=== PATIENT | female | born 1965 | race Caucasian/White ===

== ENCOUNTER 2016-11-17 11:44 | Emergency (ER) | payer MEDICARE, MEDICAID ==
[2016-11-17] MEDS ORDERED: Sodium Chloride 0.9% 1,000 ML IV ONE (12:00)
--- NOTE | 2016-11-17 12:05 | ED Physician Chart ---
Chief Complaint/HPI - Patient Information Date Seen:: 11/17/16 Time Seen:: 11:59 Chief Complaint:: vomiting History of Present Illness:: pt of dr starks..was at his ofc 2 da for n/v and given a rx for zofran but she is vomting it up when she takes it. had a lab draw yest but results unknown. here for n/v since . ate a restraunt meal wed nt felt ok. tasted ok. seems to vomit whenever she ties to eat. v x 1 yest, v x 0 today (nonbloody) diarhea x2 today, x 3 yest. nonbloody. unclear if fever...felt warm 2 nts ago. no thermometer used. has pains in abd diffuse. has back pain onset today rt side > L. more than her usual back pains. no urinary changes. Allergies:: Allergies Allergy/AdvReac Type Severity Reaction Status Date / Time No Known Allergies Allergy Verified 11/17/16 11:51 Vitals:: Vital Signs - 8 hr 11/17/16 11:51 Temp 98.2 F HR 88 RR 16 BP 126/66 O2 Sat % 97 Historian:: Patient Review of Systems - Review of Systems General/Constitutional: Fever (?), No fever, No chills, No weight loss, No weakness, No diaphoresis, No edema, No loss of appetite Skin: No skin lesions, No rash, No bruising Head: No headache, No light-headedness Eyes: No loss of vision, No pain, No diplopia ENT: No earache, No nasal drainage, No sore throat, No tinnitus Neck: No neck pain, No swelling, No thyromegaly, No stiffness, No mass noted Cardio Vascular: No chest pain, No palpitations, No PND, No orthopnea, No edema Pulmonary: No SOB, No cough, No sputum, No wheezing GI: Nausea, Vomiting, Diarrhea, Pain, No melena, No hematochezia, No constipation, No hematemesis G/U: No dysuria, No frequency, No hematuria Musculoskeletal: No bone or joint pain, No back pain, No muscle pain Endocrine: No polyuria, No polydipsia Psychiatric: No prior psych history, No depression, No anxiety, No suicidal ideation Hematopoietic: No bruising, No lymphadenopathy Allergic/Immuno: No urticaria, No angioedema Neurological: No syncope, No focal symptoms, No weakness, No paresthesia, No headache, No seizure, No dizziness, No confusion, No vertigo Past Medical History - Past Medical History Past Medical History: Thyroid disorder, Other (low back pain, diverticulitis hx , fibromyalgia) Social History: Non Smoker (quit x 3months), No Drug Use Surgical History: Cholecystectomy (2 yrs ago), other (cervical ca txd w rad/ chemo 2 yrs ago.) Medication: Reviewed Family Medical History - Family Member Maternal Grandmother Ethnicity: Non- Hx Family Cancer: Yes Mother History Unknown: Yes Ethnicity: Non- Living Status: Still Living Hx Family Cancer: Yes (Mater) Hx Family Coronary Artery Disease: No Hx Family Congestive Heart Failure: No Hx Family Hypertension: No Hx Family Stroke: No Hx Family Diabetes: No Hx Family Seizures: No Hx Family Dementia: No Hx Family AIDS: No Hx Family HIV: No Hx Family COPD: Yes Hx Family Hepatitis: No Hx Family Psychiatric Problems: No Hx Family Tuberculosis: No Labs/Radiology/EKG Results - Lab Results Results: Laboratory Tests 11/17/16 11/17/16 11/17/16 12:12 12:12 12:12 WBC 3.9 L D RBC 4.49 Hgb 14.0 Hct 40.9 MCV 91.0 MCH 31.3 H MCHC Differential 34.4 RDW 12.8 Plt Count 147 L D MPV 7.9 Band Neutrophils % 0 Neutrophils (Manual) 45 Lymphocytes 45 Monocytes 5 Atypical Lymphocytes 5 Platelet Estimate ADEQUATE Sodium 135 L Potassium 3.7 Chloride 107 Carbon Dioxide 25.3 Anion Gap 6.4 L BUN 13 Creatinine 0.9 Est GFR ( Amer) > 60.0 Est GFR (Non-Af Amer) > 60.0 BUN/Creatinine Ratio 14.4 Glucose 109 H Whole Bld Lactic Acid 0.96 Calcium 8.8 Total Bilirubin 1.0 AST 33 ALT 40 Alkaline Phosphatase 158 H Total Protein 7.5 Albumin 3.9 Globulin 3.6 Albumin/Globulin Ratio 1.1 Lipase 29 Urine Source Urine Color Urine Clarity Urine pH Ur Specific [place] Urine Protein Urine Glucose (UA) Urine Ketones Urine Blood Urine Nitrate Urine Bilirubin Urine Urobilinogen Ur Leukocyte Esterase Urine RBC Urine WBC Ur Epithelial Cells Urine Bacteria Urine Mucus Urine Test 11/17/16 11/17/16 13:10 13:10 WBC RBC Hgb Hct MCV MCH MCHC Differential RDW Plt Count MPV Band Neutrophils % Neutrophils (Manual) Lymphocytes Monocytes Atypical Lymphocytes Platelet Estimate Sodium Potassium Chloride Carbon Dioxide Anion Gap BUN Creatinine Est GFR ( Amer) Est GFR (Non-Af Amer) BUN/Creatinine Ratio Glucose Whole Bld Lactic Acid Calcium Total Bilirubin AST ALT Alkaline Phosphatase Total Protein Albumin Globulin Albumin/Globulin Ratio Lipase Urine Source CLEAN C Urine Color YELLOW Urine Clarity CLOUDY H Urine pH 6.0 Ur Specific [place] 1.020 Urine Protein 30 H Urine Glucose (UA) NEGATIVE Urine Ketones TRACE Urine Blood NEGATIVE Urine Nitrate NEGATIVE Urine Bilirubin MODERATE H Urine Urobilinogen 1.0 Ur Leukocyte Esterase LARGE H Urine RBC 0-2 Urine WBC 2-5 Ur Epithelial Cells FEW Urine Bacteria MODERATE Urine Mucus FEW Urine Test NEGATIVE - Radiology Results Results: ct abd/p- no def anomaly. prior gb sx. no renal dz, poss slt infl to pancreas (clinical coorelation advised.nrml lipase...), sx clips in pelvis?! no evidence of appy. ED Septic Shock - . Is Septic Shock (SBP<90, OR Lactate>4 mmol\L) present?: No - <6hrs of presentation: Vital Signs: Vital Signs - 8 hr 11/17/16 11:51 Temp 98.2 F HR 88 RR 16 BP 126/66 O2 Sat % 97 Reassessment (Disposition) - Reassessment Reassessment:: results reviewed w pt at 3;10p. all qs answered. asked pt how she feels and she states pain is still a lrg issue. dw pt options of go home w pain med and see pmd in 1-2 d vs jenni for pain ctrl and further [place]. pt unable to reach any decision has asked me to ruddy santana.. case dw dr santana. he says she does not meet admit criterion. he can see her in ofc tmrw. asks for us to give 1l ns and rocephin 1 g and cipro rx for uti. rx 1 cipro 500 bid x 6d, 2 norco 5s no 10. Reassessment Condition:: Improved - Diagnosis Diagnosis:: 1 abdominal and back pain sof uncertain etiology 2 dehydration 2nd vomiting/dehydration 3 uti - Aftercare/Follow up Instructions Aftercare/Follow-Up Instructions:: Counseled pt regarding lab results/diagnosis & need follow up - Patient Disposition Discharge/Transfer:: Home Condition at Disposition:: Improved ED Discharge Plan - Patient Disposition Accepting Physician: Deny Starks [Primary Care Provider] -
[2016-11-17 12:20] LABS: MEAN CORPUSCULAR HGB CONC 34.4 pg (28.0-36.0); RED CELL DISTRIBUTION WIDTH 12.8 % (11.5-20.0)
[2016-11-17 12:22] LABS: HEMATOCRIT 40.9 % (35.0-45.0); MEAN CORPUSCULAR HEMOGLOBIN 31.3 pg (27.0-31.0); MEAN PLATELET VOLUME 7.9 fl; RED BLOOD COUNT 4.49 Mil/cmm (3.80-5.10)
[2016-11-17 12:27] LABS: PLATELET COUNT 147 Th/cmm (150-400); WHITE BLOOD COUNT 3.9 Th/cmm (4.8-10.8)
[2016-11-17 12:36] LABS: ALB/GLOB RATIO 1.1 (1.0-1.8); ALKALINE PHOSPHATASE 158 U/L (34-104); ANION GAP 6.4 (7.0-16.0); BUN - UREA NITROGEN 13 mg/dL (7-25); BUN/CREATININE RATIO 14.4; CALCIUM SERUM 8.8 mg/dL (8.6-10.3); CARBON DIOXIDE 25.3 mEq/L (21.0-31.0); CHLORIDE 107 mEq/L (98-107); CREATININE - SERUM 0.9 mg/dL (0.6-1.2); GLUCOSE 109 mg/dL (70-105); LIPASE 29 U/L (11-82); POTASSIUM SERUM 3.7 mEq/L (3.5-5.1); SGOT 33 U/L (13-39); SGPT/ALT 40 U/L (7-52); SODIUM SERUM 135 mEq/L (136-145)
[2016-11-17 12:47] LABS: BAND NEUTROPHILE 0 % (0-10); NEUTROPHILS 45 % (40-80); PLATELET ESTIMATE ADEQUATE (NORMAL); TOTAL CELLS COUNTED 100
[2016-11-17 13:21] LABS: URINE BILIRUBIN MODERATE (NEGATIVE); URINE BLOOD NEGATIVE (NEGATIVE); URINE COLOR YELLOW; URINE GLUCOSE (UA) NEGATIVE (NEGATIVE); URINE KETONE TRACE mg/dL (NEGATIVE)
[2016-11-17 13:22] LABS: URINE PROTEIN 30 mg/dL (NEGATIVE)
[2016-11-17 13:26] LABS: URINE BACTERIA MODERATE /hpf (NONE SEEN); URINE EPITHELIAL CELLS FEW /lpf (FEW); URINE RBC 0-2 /hpf (0-5)
--- NOTE | 2016-11-17 14:45 | Diagnostic Imaging Report ---
CT abdomen and pelvis without intravenous contrast Indication: Pain, vomiting for 5 days Comparison: CT abdomen and pelvis on 11/12/2014, Technique: Axial images were obtained from the lung bases to the bilateral proximal femurs without IV contrast. Coronal reconstructions were made. total DLP: 886, CTDI13.2 FINDINGS: Hypoventilatory atelectatic changes of the lung bases are noted. Assessment of solid organs is limited due to lack of IV contrast. No evidence of focal hepatic lesions. The patient is status post cholecystectomy. Borderline prominent spleen is noted. No evidence of focal lesions. Pancreatic gland atrophy is noted. There is minimal haziness of the peripancreatic fat planes. Metallic density seen along the pelvic region possibly related to previous surgery. No evidence of bowel obstruction. No evidence of free fluid. No evidence of acute appendicitis. Degenerative changes of the spine are seen with pars defect at L5/S1 and 1 to 2 mm anterolisthesis. IMPRESSION: No evidence of acute appendicitis No evidence of bowel obstruction Minimal haziness of the peripancreatic fat planes. Changes associated with mild pancreatitis cannot be excluded. Please correlate with clinical findings. Pancreatic gland atrophy is also noted. Surgical clip in the pelvis, please correlate with focal findings. Evidence of prior cholecystectomy. Borderline prominent spleen. Pars defects at L5/S1 with associated 1 to 2 mm anterolisthesis at this level.
[2016-11-17] MEDS ORDERED: Morphine Sulfate 4 mg/mL 1mL Syr ONE (15:47)
== END 2016-11-17 16:40 | disposition home or self-care (01) ==
LOC: ER 11:44
DX: E86.0 Dehydration (principal); N39.0 Urinary tract infection, site not specified; R10.9 Unspecified abdominal pain; E07.9 Disorder of thyroid, unspecified; Z90.49 Acquired absence of other specified parts of digestive tract
CPT/HCPCS: 36415-UA; 80053-TC; 81001-TC; 81025-TC; 83605; 83690-TC; 85007-TC; 85027-TC; 96374; 96375; J0696; J2001; J2405; J7030

== ENCOUNTER 2016-11-22 16:37 | Emergency (ER) | payer MEDICARE, MEDICAID ==
--- NOTE | 2016-11-22 19:10 | ED Physician Chart ---
Chief Complaint/HPI - Patient Information Date Seen:: 11/22/16 Time Seen:: 17:00 Chief Complaint:: ABDOMINAL PAIN History of Present Illness:: THIS IS A 51 YR OLD OBESE FEMALE STATES THAT SHE HAS SEVERE LEFT LOWER ABDOMINAL PAIN. SHE STATES THAT SHE VOMITED FOR 8 DAYS BUT STOPPED TODAY. SHE STATES THAT SHE DOES NOT HAVE PAINFUL URINATION. SHE STATES THAT SHE MUSCLE AND NERVE PAIN. SHE ADMITS TO PERIODS OF CONFUSION. SHE WAS SEEN IN THIS ER SEVERAL DAYS AGO. Allergies:: Allergies Allergy/AdvReac Type Severity Reaction Status Date / Time hydromorphone [From Dilaudid] Allergy Verified 11/22/16 16:39 Vitals:: Vital Signs - 8 hr 11/22/16 16:41 Temp 98.4 F HR 81 RR 15 BP 130/79 O2 Sat % 95 Historian:: Patient Review:: Nurse's Note Reviewed <Buddy Antony - Last Filed: 11/22/16 19:20> - Patient Information Allergies:: Allergies Allergy/AdvReac Type Severity Reaction Status Date / Time hydromorphone [From Dilaudid] Allergy Verified 11/22/16 16:39 Vitals:: Vital Signs - 8 hr 11/22/16 11/22/16 16:41 19:40 Temp 98.4 F 98.6 F HR 81 73 RR 15 18 BP 130/79 119/66 O2 Sat % 95 98 <Roger Crump - Last Filed: 11/22/16 22:13> Review of Systems - Review of Systems General/Constitutional: No fever, No chills, Weight loss, No weakness, No diaphoresis, No edema, Loss of appetite Skin: No skin lesions, No rash, No bruising Head: No headache, No light-headedness Eyes: No loss of vision, No pain, No diplopia ENT: No earache, No nasal drainage, No sore throat, No tinnitus Neck: No neck pain, No swelling, No thyromegaly, No stiffness, No mass noted Cardio Vascular: No chest pain, No palpitations, No PND, No orthopnea, No edema Pulmonary: No SOB, No cough, No sputum, No wheezing GI: Nausea, Vomiting, No diarrhea, Pain, No melena, No hematochezia, No constipation, No hematemesis G/U: No dysuria, No frequency, No hematuria Musculoskeletal: No bone or joint pain, No back pain, No muscle pain Endocrine: No polyuria, No polydipsia Psychiatric: No prior psych history, No depression, No anxiety, No suicidal ideation Hematopoietic: No bruising, No lymphadenopathy Allergic/Immuno: No urticaria, No angioedema Neurological: No syncope, No focal symptoms, No weakness, No paresthesia, No headache, No seizure, No dizziness, No confusion, No vertigo <Buddy Antony Last Filed: 11/22/16 19:20> Past Medical History - Past Medical History Obtainable: Yes Past Medical History: HTN, Dyslipidemia, Arthritis Family History: Other (UNKNOWN) Social History: Non Smoker, No Alcohol, No Drug Use Surgical History: Cholecystectomy, other (CERVICAL CANCER SURGERY) Psychiatricy History: Depression Medication: Reviewed <Buddy Antony Filed: 11/22/16 19:20> Family Medical History - Family Member Maternal Grandmother Ethnicity: Non- Hx Family Cancer: Yes (father, brain ca) Mother History Unknown: Yes Ethnicity: Non- Living Status: Still Living Hx Family Cancer: Yes (Mater) Hx Family Coronary Artery Disease: No Hx Family Congestive Heart Failure: No Hx Family Hypertension: No Hx Family Stroke: No Hx Family Diabetes: No Hx Family Seizures: No Hx Family Dementia: No Hx Family AIDS: No Hx Family HIV: No Hx Family COPD: Yes Hx Family Hepatitis: No Hx Family Psychiatric Problems: No Hx Family Tuberculosis: No <Buddy Antony Filed: 11/22/16 19:20> Physical Exam - Physical Examination General/Constitutional: Awake, Well-developed, well-nourished, Alert, No distress, GCS 15, Non-toxic appearing, Ambulatory Head: Atraumatic Eyes: Lids, conjuctiva normal, PERRL, EOMI Skin: Nl inspection, No rash, No skin lesions, No ecchymosis, Well hydrated, No lymphadenopathy ENMT: External ears, nose nl, Nasal exam nl, Lips, teeth, gums nl Neck: Nontender, Full ROM w/o pain, No JVD, No nuchal rigidity, No bruit, No mass, No stridor Respiratory: Nl effort/Exclusion, Clear to Auscultation, No Wheeze/Rhonchi/Rales Cardio Vascular: RRR, No murmur, gallop, rubs, NL S1 S2 GI: No organomegaly, No hernia, Normal BS's, Nondistended, No mass/bruits, No McBurney tenderness Other GI comments:: LEFT LOWER QUADRANT : No CVA tenderness Extremities: No tenderness or effusion, Full ROM, normal strength in all extremities, No edema, Normal digits & nails Neuro/Psych: Alert/oriented, DTR's symmetric, Normal sensory exam, Normal motor strength, Judgement/insight normal, Mood normal, Normal gait, No focal deficits Misc: normal gait, Normal back, No paraspinal tenderness <ArpanBuddy - Last Filed: 11/22/16 19:20> Labs/Radiology/EKG Results - Lab Results Results: Laboratory Tests 11/22/16 17:50 Urine Test NEGATIVE - EKG Interpretations EKG Time:: 16:50 Rate & Rhythm: RATE =84, SINUS [place]: RIGHT <Buddy Antony - Last Filed: 11/22/16 19:20> - Lab Results Results: Laboratory Tests 11/22/16 11/22/16 11/22/16 17:50 19:10 19:10 WBC RBC Hgb Hct MCV MCH MCHC Differential RDW Plt Count MPV Neutrophils % Lymphocytes % Monocytes % Eosinophils % Basophils % PT 9.8 INR 0.94 PTT (Actin FS) 25.4 L Sodium Potassium Chloride Carbon Dioxide Anion Gap BUN Creatinine Est GFR ( Amer) Est GFR (Non-Af Amer) BUN/Creatinine Ratio Glucose Calcium Total Bilirubin AST ALT Alkaline Phosphatase Troponin I Total Protein Albumin Globulin Albumin/Globulin Ratio Triglycerides 246 H Cholesterol 153 LDL Cholesterol Direct 88 HDL Cholesterol 31 Lipase TSH Urine Test NEGATIVE RPR 11/22/16 11/22/16 11/22/16 19:10 19:10 19:10 WBC 4.7 L D RBC 4.02 Hgb 12.9 Hct 36.4 D MCV 90.6 MCH 32.0 H MCHC Differential 35.4 RDW 13.0 Plt Count 156 MPV 7.9 Neutrophils % 44.8 Lymphocytes % 45.9 Monocytes % 6.2 Eosinophils % 2.9 Basophils % 0.2 PT INR PTT (Actin FS) Sodium 136 Potassium 3.7 Chloride 106 Carbon Dioxide 24.7 Anion Gap 9.0 BUN 14 Creatinine 0.8 Est GFR ( Amer) > 60.0 Est GFR (Non-Af Amer) > 60.0 BUN/Creatinine Ratio 17.5 Glucose 112 H Calcium 8.4 L Total Bilirubin 0.6 AST 21 ALT 27 Alkaline Phosphatase 131 H Troponin I < 0.01 L Total Protein 6.8 Albumin 3.5 L Globulin 3.3 Albumin/Globulin Ratio 1.1 Triglycerides Cholesterol LDL Cholesterol Direct HDL Cholesterol Lipase TSH Urine Test RPR 11/22/16 11/22/16 11/22/16 19:10 19:10 19:10 WBC RBC Hgb Hct MCV MCH MCHC Differential RDW Plt Count MPV Neutrophils % Lymphocytes % Monocytes % Eosinophils % Basophils % PT INR PTT (Actin FS) Sodium Potassium Chloride Carbon Dioxide Anion Gap BUN Creatinine Est GFR ( Amer) Est GFR (Non-Af Amer) BUN/Creatinine Ratio Glucose Calcium Total Bilirubin AST ALT Alkaline Phosphatase Troponin I Total Protein Albumin Globulin Albumin/Globulin Ratio Triglycerides Cholesterol LDL Cholesterol Direct HDL Cholesterol Lipase 45 TSH 10.18 H Urine Test RPR NONREACTIVE <Roger Crump - Last Filed: 11/22/16 22:13> ED Septic Shock - . Is Septic Shock (SBP<90, OR Lactate>4 mmol\L) present?: No - <6hrs of presentation: Vital Signs: Vital Signs - 8 hr 11/22/16 16:41 Temp 98.4 F HR 81 RR 15 BP 130/79 O2 Sat % 95 <Buddy Antony - Last Filed: 11/22/16 19:20> - <6hrs of presentation: Vital Signs: Vital Signs - 8 hr 11/22/16 11/22/16 16:41 19:40 Temp 98.4 F 98.6 F HR 81 73 RR 15 18 BP 130/79 119/66 O2 Sat % 95 98 <Roger Crump - Last Filed: 11/22/16 22:13> Reassessment (Disposition) - Reassessment Reassessment Condition:: Unchanged <Buddy Antony - Last Filed: 11/22/16 19:20> - Reassessment Reassessment:: CT scan shows no acute changes from her previous on 11/17/2016. Lipase unremarkable. Patient has abdominal pain unknown etiology. Follow-up with GI and primary care 1-2 days. Pain is not controlled after receiving Toradol. Discussed return to ER precautions. Patient understands and agrees with the plan. - Diagnosis Diagnosis:: Abdominal pain, unknown etiology - Aftercare/Follow up Instructions Aftercare/Follow-Up Instructions:: Counseled pt regarding lab results/diagnosis & need follow up, Refer to Discharge Instructions - Patient Disposition Discharge/Transfer:: Home Time:: 22:13 Condition at Disposition:: Improved <Roger Crump - Last Filed: 11/22/16 22:13>
[2016-11-22 19:25] LABS: % BASOPHILS 0.2 % (0.0-2.0); % EOSINOPHILS 2.9 % (0.0-5.0); % LYMPHOCYTES 45.9 % (20.0-50.0); % MONOCYTES 6.2 % (2.0-10.0); % NEUTROPHILS 44.8 % (40.0-80.0); HEMOGLOBIN 12.9 gm/dL (11.7-15.5); MEAN CELL VOLUME 90.6 fl (81-100); MEAN CORPUSCULAR HGB CONC 35.4 pg (28.0-36.0); MEAN PLATELET VOLUME 7.9 fl; NEUTROPHILE ABSOLUTE 2.1 Th/cmm (1.8-8.0); PLATELET COUNT 156 Th/cmm (150-400); RED BLOOD COUNT 4.02 Mil/cmm (3.80-5.10)
[2016-11-22 19:27] LABS: HEMATOCRIT 36.4 % (35.0-45.0); WHITE BLOOD COUNT 4.7 Th/cmm (4.8-10.8)
[2016-11-22 19:34] LABS: INR 0.94 (0.5-1.4); PROTHROMBIN TIME (TEST) 9.8 SECONDS (9.5-11.5)
[2016-11-22 19:36] LABS: CHOLESTEROL 153 mg/dL (<200); TRIGLYCERIDES 246 mg/dL (<150)
[2016-11-22 19:38] LABS: ALB/GLOB RATIO 1.1 (1.0-1.8); ALKALINE PHOSPHATASE 131 U/L (34-104); BILIRUBIN,TOTAL 0.6 mg/dL (0.3-1.0); BUN - UREA NITROGEN 14 mg/dL (7-25); BUN/CREATININE RATIO 17.5; CALCIUM SERUM 8.4 mg/dL (8.6-10.3); CARBON DIOXIDE 24.7 mEq/L (21.0-31.0); CHLORIDE 106 mEq/L (98-107); CREATININE - SERUM 0.8 mg/dL (0.6-1.2); GLUCOSE 112 mg/dL (70-105); POTASSIUM SERUM 3.7 mEq/L (3.5-5.1); SGOT 21 U/L (13-39); SGPT/ALT 27 U/L (7-52); SODIUM SERUM 136 mEq/L (136-145)
--- NOTE | 2016-11-23 10:21 | Diagnostic Imaging Report ---
CHEST X-RAY: AP view INDICATION: pain COMPARISON: None FINDINGS: Mild chronic changes are seen. No focal consolidation or effusions. Heart size is normal. Degenerative changes of the spine are seen with mild scoliosis. IMPRESSION: Mild chronic lung changes with no focal consolidation identified.
--- NOTE | 2016-11-23 10:44 | Diagnostic Imaging Report ---
CT abdomen and pelvis without intravenous contrast Indication: Abdominal pain Comparison: CT abdomen and pelvis on 11/17/2016, Technique: Axial images were obtained from the lung bases to the bilateral proximal femurs without IV contrast. Coronal reconstructions were made. total DLP: [id number], [id number] FINDINGS: The lung bases are clear. Assessment of solid organs is limited due to lack of IV contrast. Exam is also limited due to motion. There is fatty infiltration of the liver. No evidence of focal lesions. No focal splenic lesions. Mild hepatosplenomegaly is noted. The patient is status post cholecystectomy. Pancreatic gland atrophy is noted. Assessment focal hepatic lesions is limited, however no focal lesions identified. No focal adrenal lesions. No evidence of hydronephrosis or nephrolithiasis. A surgical clip is again noted within the pelvis. Moderate stool is noted. No evidence of bowel obstruction. No evidence of acute appendicitis. No evidence of free air or free fluid. Pars defects are seen at L5/S1 with 2 mm anterolisthesis at this level. IMPRESSION: No evidence of acute appendicitis. Moderate amount of stool. No evidence of bowel obstruction Mild hepatosplenomegaly. Fatty infiltration of the liver Evidence of prior cholecystectomy. Surgical clip in the pelvis, please correlate clinically. Bilateral pars defects at L5/S1 with 2 mm anterolisthesis noted at this level.
== END 2016-11-22 22:15 | disposition home or self-care (01) ==
LOC: ER 16:37
DX: R10.31 Right lower quadrant pain (principal); I10 Essential (primary) hypertension; E78.5 Hyperlipidemia, unspecified; Z90.49 Acquired absence of other specified parts of digestive tract; Z98.890 Other specified postprocedural states; Z88.6 Allergy status to analgesic agent
CPT/HCPCS: 99285; 74176; 96374; 71010; 93005; 84484; 36415; 84443; 86592; 85025; 85610; 85730; 81025; 83690; 80053; 80061; 87040 ×2; J1885 ×2

== ENCOUNTER 2017-06-03 21:53 | Emergency (ER) | payer MEDICARE, MEDICAID ==
[2017-06-03] MEDS ORDERED: metroNIDAZOLE 500mg/NS 100mL 500 MG/100 ML BAG IV ONE ×2 (23:17→23:30)
[2017-06-03 23:39] LABS: % BASOPHILS 0.6 % (0.0-2.0); % EOSINOPHILS 3.8 % (0.0-5.0); % LYMPHOCYTES 36.7 % (20.0-50.0); % NEUTROPHILS 53.9 % (40.0-80.0); MEAN CELL VOLUME 93.4 fl (81-100); MEAN CORPUSCULAR HEMOGLOBIN 32.8 pg (27.0-31.0); MEAN CORPUSCULAR HGB CONC 35.2 pg (28.0-36.0); MEAN PLATELET VOLUME 9.7 fl; RED BLOOD COUNT 4.72 Mil/cmm (3.80-5.10); RED CELL DISTRIBUTION WIDTH 12.8 % (11.5-20.0)
[2017-06-03 23:55] LABS: WHITE BLOOD COUNT 9.5 Th/cmm (4.8-10.8)
[2017-06-03 23:56] LABS: HEMOGLOBIN 15.5 gm/dL (12-16)
[2017-06-03 23:57] LABS: PLATELET COUNT 220 Th/cmm (150-400)
[2017-06-04] LABS: ANION GAP 12.4 (7.0-16.0); BUN - UREA NITROGEN 22 mg/dL (7-25); CALCIUM SERUM 9.6 mg/dL (8.6-10.3); CARBON DIOXIDE 23.5 mEq/L (21.0-31.0); CHLORIDE 103 mEq/L (98-107); CREATININE - SERUM 1.1 mg/dL (0.6-1.2); GLUCOSE 112 mg/dL (70-105); POTASSIUM SERUM 3.9 mEq/L (3.5-5.1); SODIUM SERUM 135 mEq/L (136-145)
[2017-06-04 00:01] LABS: ALB/GLOB RATIO 1.1 (1.0-1.8); ALKALINE PHOSPHATASE 144 U/L (34-104); BILIRUBIN,TOTAL 0.6 mg/dL (0.3-1.0); SGOT 38 U/L (13-39); SGPT/ALT 53 U/L (7-52)
--- NOTE | 2017-06-04 03:14 | ER Physician Documentation ---
DATE OF SERVICE: 06/03/2017 HISTORY AND PHYSICAL EXAM AND EMERGENCY ROOM EVALUATION AND TREATMENT HISTORY OF PRESENT ILLNESS: She is 51-year-old female patient. Triage nurse saw the patient. The patient was interviewed, Salvador the nurse is at the bedside taking care of her and starting to IV and etc, has been taking care of the patient very closely along with me. The patient is crying and complaining of pain in the lower abdomen for the past 2 days, mostly she pointed in the suprapubic area and some pain in the left side of the abdomen and some on the right side of the abdomen, but mostly in the suprapubic area. HISTORY OF PRESENT ILLNESS: The patient has been having pain for the past 2 days. She denied any burning, frequency or dysuria. She denied any diarrhea. She has a history of diverticulitis in the past year, but she does not have any diarrhea. She had one bowel movement today. She does not have any other pelvic infections, etc known to her in the past. She does not have any other significant pain in the upper part of the abdomen, like gallbladder area or costovertebral angle, etc. Her past history is positive for cervical cancer occurring in 2008. At this time, she has the surgery. She has degenerative disk disease. She has fibromyalgia. She has diverticulitis. She has Noemi's thyroiditis, for which she takes the highest dose of thyroxine, which I believe maybe 300 mcg per day, plus she takes naproxen 500 mg twice a day. She does not remember the dose, maximum dose maybe 500 mg twice a day and she is taking gabapentin 300 mg four times a day. FAMILY HISTORY: Noncontributory. PAST SURGICAL HISTORY: She had previous surgery of gallbladder surgery less than 10 years ago. She sees her primary care physician. She has not seen her [employer]. She does not know why. In the past 2 days, she has this significant kind of pain. She has history of diverticulitis in the past, that is known to her. REVIEW OF SYSTEMS: EYES: No history of double vision, blurring, blindness. CENTRAL NERVOUS SYSTEM: No history of TIA, stroke, encephalitis, meningitis, or brain tumors. No history of any epilepsy or seizures. ENDOCRINE: No history of diabetes mellitus, hypothyroidism history is present. She has Noemi's thyroiditis history is present. GASTROINTESTINAL: The patient has a history of diverticulitis is present. CANCER: The patient has a history of cervical cancer diagnosed in the year 2008. BONES AND JOINTS: She has degenerative joint disease. PAIN: She has history of fibromyalgia in the past. She has a history of diverticulitis in the past. PAST SURGICAL HISTORY: Includes gallbladder surgery, less than 10 years ago. As far as her weight is concerned, she is weighing 300 pounds. She has always been heavy. She is complaining of pain 10/10. When Toradol injection was given, she asked the nurse what medication was given to the patient and she was applied that Toradol would be given to the patient at the present moment along with antibiotics and investigation for her urine. Lower part of the abdomen examination and treatment will be given to her. She does not drink or smoke. She does not have any burning, frequency or dysuria. PHYSICAL EXAMINATION: GENERAL: The height is 5 feet 10 inches, weighing 300 pounds. HEENT: Conjunctivae are pink, sclerae is white. HEENT is normal. NECK: Supple. ENT: Appears to be normal. CHEST: Clear. Tracheal ring central. Fairly good air entry in both lungs without any rales, rhonchi or bronchial wheezing. ABDOMEN: Obese. Liver, spleen not enlarged. No free fluid in the abdominal cavity. There is tenderness located in the lower abdomen, suprapubic area as well as both lower quadrants, left lower quadrant, right lower quadrant area, more pain is located in the suprapubic area. Urine for culture and sensitivity, etc. has been sent. Liver and spleen are not enlarged. No ascites is present. HEART: Sounds appears to be normal. PMI is not seen or felt. S1, S2 are normal. First heart sounds is heard. Third heart sound is heard. GENITOURINAL SYSTEM: Normal. CLINICAL IMPRESSION: The patient most likely has pelvic inflammatory disease versus diverticulitis versus urinary tract infection. Urine has been sent for culture, sensitivity. Chest x-ray has been done, which is found to be within normal limits. Other diagnosis; the patient has been given IV ceftriaxone and IV Flagyl and the patient might need admission to the hospital. We will call the admitting patient's doctor and discussed with the patient. The patient's other diagnosis includes cervical carcinoma in the year 2008. Degenerative disk disease. She has fibromyalgia. She has diverticulitis. She has Noemi's thyroiditis. She has gallbladder surgery less than 10 years ago. She has morbid obesity. She is on this medication; naproxen, gabapentin, levothyroxine. All the lab workup has been ordered. Once we get the lab workup, I will give an additional dictation for the patient's lab findings as well as the treatment part for this patient to be given and disposition matters, etc. JOB# [id number]
--- NOTE | 2017-06-04 04:02 | ER Physician Documentation ---
DATE OF SERVICE: The patient came here with lower abdominal pain in the pelvic area and suprapubic area and a lab workup was done and white count was 9.5, hemoglobin 15.5, hematocrit 44 and differential was 35.2, mean corpuscular hemoglobin was 32.8, platelet count was 220,000, neutrophil was 53.9, lymphocytes 36.7. Chemistry showed sodium 135, potassium 3.9, chloride 103, BUN 22, creatinine 1.1, glucose is 112, magnesium 2.1, AST is 38, ALT is 53, total protein is 7.8, albumin is 4.1, globulin is 3.7. The patient is feeling better. I examined her and we will send the patient home to be followed up by her own physician. If she needs any [employer] examination that would be done by her own physician. I do not think so that she needs anything. She was given Flagyl 500 mg 3 times a day to be taken for 7 days and she was given Keflex 500 mg 4 times a day for 7 days to be taken. Probable diagnosis is pelvic inflammatory disease versus diverticulitis as the cause, whichever one can consider as most likely. Urine was sent. I believe we did not have any results back. The patient already had a gallbladder surgery done in the past, . JOB# [id number]
== END 2017-06-04 01:35 | disposition home or self-care (01) ==
LOC: ER 21:53
DX: K57.92 Diverticulitis of intestine, part unspecified, without perforation or abscess without bleeding (principal); N73.9 Female pelvic inflammatory disease, unspecified; N39.0 Urinary tract infection, site not specified; M79.7 Fibromyalgia
CPT/HCPCS: 99284; 96372; 36415; 84443; 86141; 85025; 87086; 83735; 80053; 84439; J1885; J2405; J0696; 90799; Z7502

== ENCOUNTER 2017-06-05 13:22 | Emergency (ER) | payer MEDICARE, MEDICAID ==
--- NOTE | 2017-06-05 14:19 | ED Physician Chart ---
ED Chief Complaint/HPI - Patient Information Date Seen:: 06/05/17 Time Seen:: 13:30 Chief Complaint:: Abdominal pain for 4 days. History of Present Illness:: Brought in by private auto for the above reason. Pt was seen by Dr. Alvarez on and was put on antibiotic therapy with Keflex and Flagyl according to pt. Pain is characterized as constant, diffuse, and crampy. No known aggravating or relieving factors. No fever. Pt had transient nausea. No vomiting. Last BM at about 1 pm today, which was dark brown and loose. No hematochezia or melena. No dysuria, urgency, or frequency with urination. No gross hematuria. No vaginal bleeding or discharge. LNMP about 10 years ago because of early menopause. Pt states that she had h/o cervical CA and underwent chemotherapy about 10 y/a. No lightheadedness. Allergies:: Allergies Allergy/AdvReac Type Severity Reaction Status Date / Time No Known Allergies Allergy Verified 06/05/17 13:32 Vitals:: Vital Signs - 8 hr 06/05/17 13:22 Temp 97.2 F HR 82 RR 16 BP 125/69 O2 Sat % 97 Historian:: Patient Family MD/PCP:: Dr. Mccarty LMP:: about 10 years ago. Review:: Nurse's Note Reviewed ED Review of Systems - Review of Systems General/Constitutional: No fever, No chills, No weight loss, No weakness, No edema, No loss of appetite Skin: No rash, No bruising Head: No headache, No light-headedness Eyes: No loss of vision, No pain ENT: No earache, No nasal drainage, No sore throat Neck: No neck pain, No swelling, No thyromegaly, No stiffness, No mass noted Cardio Vascular: No chest pain, No palpitations, No edema Pulmonary: No SOB, No cough, No wheezing GI: Nausea (transient), No vomiting, Diarrhea (?), Pain, No melena, No hematochezia, No constipation, No hematemesis G/U: No dysuria, No frequency, No hematuria Block Breaker Operator: No vaginal discharge, No abnormal vaginal bleed Musculoskeletal: No bone or joint pain, No back pain, No muscle pain Endocrine: No polyuria, No polydipsia Psychiatric: No prior psych history Hematopoietic: No bruising, No lymphadenopathy Allergic/Immuno: No urticaria, No angioedema Neurological: No syncope, No focal symptoms, No weakness, No paresthesia, No headache, No dizziness, No confusion ED Past Medical History - Past Medical History Past Medical History: Asthma/COPD, Thyroid disorder, Other (?peripheral neuropathy) Family History: Cancer (MGM) Social History: Non Smoker, No Alcohol, No Drug Use Surgical History: Cholecystectomy () Psychiatricy History: None Medication: Reviewed Family Medical History - Family Member Maternal Grandmother Ethnicity: Non- Hx Family Cancer: Yes (father, brain ca) Mother History Unknown: Yes Ethnicity: Non- Living Status: Still Living Hx Family Cancer: Yes (Mater) Hx Family Coronary Artery Disease: No Hx Family Congestive Heart Failure: No Hx Family Hypertension: No Hx Family Stroke: No Hx Family Diabetes: No Hx Family Seizures: No Hx Family Dementia: No Hx Family AIDS: No Hx Family HIV: No Hx Family COPD: Yes Hx Family Hepatitis: No Hx Family Psychiatric Problems: No Hx Family Tuberculosis: No ED Physical Exam - Physical Examination General/Constitutional: Awake, Well-developed, well-nourished, Alert, GCS 15, Non-toxic appearing, Ambulatory Other Gen/Cons comments:: Breathes comfortably, speaks clearly, complains of severe abdominal pain. Head: Atraumatic Eyes: Lids, conjuctiva normal, PERRL, EOMI Other Eyes comments:: Anicteric sclera. Skin: No rash, No ecchymosis, No lymphadenopathy ENMT: External ears, nose nl, Nasal exam nl, Oropharynx nl Neck: Nontender, Full ROM w/o pain, No nuchal rigidity, No mass, No stridor Respiratory: Nl effort/Exclusion, Clear to Auscultation, No Wheeze/Rhonchi/Rales Cardio Vascular: RRR, No murmur, gallop, rubs GI: No organomegaly, No hernia, Normal BS's, Nondistended, No mass/bruits, No McBurney tenderness Other GI comments:: Tendernesss at RUQ, LUQ and LLQ. Pt is obese but soft. No definte distension. Negative Gray's, Bear Lawrence's, or Marcus's signs. No R/G. Rectal exam performed in the presence of female nurse Cindi: No mass. Stool is yellow. : No CVA tenderness, NL external genitalia, No discharge, NL pelvic exam, No CMT, NL adnexa Other comments:: Pelvic exam was performed in the presence of female nurse Cindi. The exam is limited because of pt's obesity. Uterus is of normal size and consistency. No vaginal bleeding or discharge. No adnexal mass or tenderness. No CMT. Extremities: No tenderness or effusion, Full ROM, normal strength in all extremities, No edema, Normal digits & nails Neuro/Psych: Alert/oriented (oriented x 3), Normal motor strength, Judgement/ insight normal, Mood normal, Normal gait, No focal deficits ED Labs/Radiology/EKG Results - Lab Results Results: Laboratory Tests 06/05/17 06/05/17 06/05/17 13:57 13:57 14:43 WBC 5.6 D RBC 4.25 Hgb 13.8 Hct 39.6 L MCV 93.2 MCH 32.4 H MCHC Differential 34.8 RDW 12.9 Plt Count 175 D MPV 8.7 Neutrophils % 50.5 Lymphocytes % 37.3 Monocytes % 6.4 Eosinophils % 5.7 H Basophils % 0.1 PT INR PTT (Actin FS) Sodium Potassium Chloride Carbon Dioxide Anion Gap BUN Creatinine Est GFR ( Amer) Est GFR (Non-Af Amer) BUN/Creatinine Ratio Glucose Calcium Total Bilirubin AST ALT Alkaline Phosphatase Total Protein Albumin Globulin Albumin/Globulin Ratio Amylase Lipase Urine Source MIDSTREAM Urine Color DEMETRIUS Urine Clarity HAZY Urine pH 6.0 Ur Specific [place] 1.025 Urine Protein 30 H Urine Glucose (UA) NEGATIVE Urine Ketones TRACE Urine Blood NEGATIVE Urine Nitrate POSITIVE H Urine Bilirubin SMALL H Urine Urobilinogen 1.0 Ur Leukocyte Esterase TRACE H Urine RBC 0-1 Urine WBC 0-2 Ur Epithelial Cells FEW Calcium Oxalate Crystal MODERATE Urine Bacteria FEW Urine Test NEGATIVE 06/05/17 06/05/17 14:43 14:43 WBC RBC Hgb Hct MCV MCH MCHC Differential RDW Plt Count MPV Neutrophils % Lymphocytes % Monocytes % Eosinophils % Basophils % PT 10.0 INR 0.96 PTT (Actin FS) 20.9 L Sodium 135 L Potassium 3.8 Chloride 104 Carbon Dioxide 23.9 Anion Gap 10.9 BUN 21 Creatinine 0.8 Est GFR ( Amer) > 60.0 Est GFR (Non-Af Amer) > 60.0 BUN/Creatinine Ratio 26.3 Glucose 111 H Calcium 8.9 Total Bilirubin 0.6 AST 39 ALT 56 H Alkaline Phosphatase 160 H Total Protein 7.3 Albumin 3.8 Globulin 3.5 Albumin/Globulin Ratio 1.1 Amylase 33 Lipase 45 Urine Source Urine Color Urine Clarity Urine pH Ur Specific [place] Urine Protein Urine Glucose (UA) Urine Ketones Urine Blood Urine Nitrate Urine Bilirubin Urine Urobilinogen Ur Leukocyte Esterase Urine RBC Urine WBC Ur Epithelial Cells Calcium Oxalate Crystal Urine Bacteria Urine Test Laboratory Last Values WBC 5.6 Th/cmm (4.8-10.8) D 06/05/17 14:43 RBC 4.25 Mil/cmm (3.80-5.10) 06/05/17 14:43 Hgb 13.8 gm/dL (12-16) 06/05/17 14:43 Hct 39.6 % (41.0-60) L 06/05/17 14:43 MCV 93.2 fl (81-100) 06/05/17 14:43 MCH 32.4 pg (27.0-31.0) H 06/05/17 14:43 MCHC Differential 34.8 pg (28.0-36.0) 06/05/17 14:43 RDW 12.9 % (11.5-20.0) 06/05/17 14:43 Plt Count 175 Th/cmm (150-400) D 06/05/17 14:43 MPV 8.7 fl 06/05/17 14:43 Neutrophils % 50.5 % (40.0-80.0) 06/05/17 14:43 Lymphocytes % 37.3 % (20.0-50.0) 06/05/17 14:43 Monocytes % 6.4 % (2.0-10.0) 06/05/17 14:43 Eosinophils % 5.7 % (0.0-5.0) H 06/05/17 14:43 Basophils % 0.1 % (0.0-2.0) 06/05/17 14:43 PT 10.0 SECONDS (9.5-11.5) 06/05/17 14:43 INR 0.96 (0.5-1.4) 06/05/17 14:43 PTT (Actin FS) 20.9 SECONDS (26.0-38.0) L 06/05/17 14:43 Sodium 135 mEq/L (136-145) L 06/05/17 14:43 Potassium 3.8 mEq/L (3.5-5.1) 06/05/17 14:43 Chloride 104 mEq/L (98-107) 06/05/17 14:43 Carbon Dioxide 23.9 mEq/L (21.0-31.0) 06/05/17 14:43 Anion Gap 10.9 (7.0-16.0) 06/05/17 14:43 BUN 21 mg/dL (7-25) 06/05/17 14:43 Creatinine 0.8 mg/dL (0.6-1.2) 06/05/17 14:43 Est GFR ( Amer) > 60.0 ml/min (>90) 06/05/17 14:43 Est GFR (Non-Af Amer) > 60.0 ml/min 06/05/17 14:43 BUN/Creatinine Ratio 26.3 06/05/17 14:43 Glucose 111 mg/dL (70-105) H 06/05/17 14:43 Calcium 8.9 mg/dL (8.6-10.3) 06/05/17 14:43 Total Bilirubin 0.6 mg/dL (0.3-1.0) 06/05/17 14:43 AST 39 U/L (13-39) 06/05/17 14:43 ALT 56 U/L (7-52) H 06/05/17 14:43 Alkaline Phosphatase 160 U/L (34-104) H 06/05/17 14:43 Total Protein 7.3 gm/dL (6.0-8.3) 06/05/17 14:43 Albumin 3.8 gm/dL (3.7-5.3) 06/05/17 14:43 Globulin 3.5 gm/dL 06/05/17 14:43 Albumin/Globulin Ratio 1.1 (1.0-1.8) 06/05/17 14:43 Amylase 33 U/L (29-103) 06/05/17 14:43 Lipase 45 U/L (11-82) 06/05/17 14:43 Urine Source MID[place] 06/05/17 13:57 Urine Color DEMETRIUS 06/05/17 13:57 Urine Clarity HAZY (CLEAR) 06/05/17 13:57 Urine pH 6.0 (4.6 - 8.0) 06/05/17 13:57 Ur Specific [place] 1.025 (1.005-1.030) 06/05/17 13:57 Urine Protein 30 mg/dL (NEGATIVE) H 06/05/17 13:57 Urine Glucose (UA) NEGATIVE mg/dL (NEGATIVE) 06/05/17 13:57 Urine Ketones TRACE mg/dL (NEGATIVE) 06/05/17 13:57 Urine Blood NEGATIVE (NEGATIVE) 06/05/17 13:57 Urine Nitrate POSITIVE (NEGATIVE) H 06/05/17 13:57 Urine Bilirubin SMALL (NEGATIVE) H 06/05/17 13:57 Urine Urobilinogen 1.0 E.U./dL (0.2 - 1.0) 06/05/17 13:57 Ur Leukocyte Esterase TRACE (NEGATIVE) H 06/05/17 13:57 Urine RBC 0-1 /hpf (0-5) 06/05/17 13:57 Urine WBC 0-2 /hpf (0-5) 06/05/17 13:57 Ur Epithelial Cells FEW /lpf (FEW) 06/05/17 13:57 Calcium Oxalate Crystal MODERATE /hpf 06/05/17 13:57 Urine Bacteria FEW /hpf (NONE SEEN) 06/05/17 13:57 Urine Test NEGATIVE 06/05/17 13:57 Stool Occult Blood NEGATIVE (NEGATIVE) 06/05/17 19:45 - Radiology Results Results: CT abdomen and pelvis without contrast: Mildly dilated fluid filled sm bowel. Enteritis cannot be r/o. Correlate clinically. S/P demetrice. No other acute abnormalities. Official report per Dr. Ender Nicole, radiologist. ED Septic Shock - . Is Septic Shock (SBP<90, OR Lactate>4 mmol\L) present?: No - <6hrs of presentation: Vital Signs: Vital Signs - 8 hr 06/05/17 13:22 Temp 97.2 F HR 82 RR 16 BP 125/69 O2 Sat % 97 ED Reassessment (Disposition) - Reassessment Reassessment:: 1844 Pt has been repeatedly evaluated. Pt remains stable and is comfortable. Awaiting CT report. 2009 Remaining lab reults and CT report just became available. Lab and CT findings have been reviewed with pt. Pt feels much better and requests to go home now. Pt does not want further observation/management in hospital. Pt plans to follow with PCP Dr. Mccarty tomorrow. Aftercare instructions have been given. Her brother Rafael will drive pt home. Reassessment Condition:: Improved - Diagnosis Diagnosis:: Abdominal pain probably related to acute cystitis and enteritis, stable and currently asymptomatic. - Aftercare/Follow up Instructions Aftercare/Follow-Up Instructions:: Refer to Discharge Instructions Notes:: Continue present care. Bedrest for today. Clear liquid diet for today. Abdominal pain instructions given. Drowsiness precautions given with the use of Dilaudid. F/U with PCP Dr. Mccarty in one day for recheck with repeat lab studies: CMP, urinalysis. Return to ER immediately if condition worsens or if any further questions/problems. Medication Prescribed:: Bactrim DS one tab po q12h for 7 days. D-14 R-0 - Patient Disposition Discharge/Transfer:: Home Time:: 20:20 Condition at Disposition:: Stable, Improved
[2017-06-05] MEDS ORDERED: HYDROmorphone 1 mg/mL 1mL Syr IVP STA (14:30)
[2017-06-05] MEDS ORDERED: Sodium Chloride 0.9% 500 ML IV ONE (14:31)
[2017-06-05] MEDS ORDERED: Sodium Chloride 0.9% 1,000 ML IV SCH (14:33)
[2017-06-05] MEDS ORDERED: HYDROmorphone 1 mg/mL 1mL Syr ONE (14:48)
[2017-06-05 14:58] LABS: % BASOPHILS 0.1 % (0.0-2.0); % EOSINOPHILS 5.7 % (0.0-5.0); % LYMPHOCYTES 37.3 % (20.0-50.0); % MONOCYTES 6.4 % (2.0-10.0); % NEUTROPHILS 50.5 % (40.0-80.0); HEMATOCRIT 39.6 % (41.0-60); HEMOGLOBIN 13.8 gm/dL (12-16); MEAN CELL VOLUME 93.2 fl (81-100); MEAN CORPUSCULAR HEMOGLOBIN 32.4 pg (27.0-31.0); MEAN CORPUSCULAR HGB CONC 34.8 pg (28.0-36.0); MEAN PLATELET VOLUME 8.7 fl; NEUTROPHILE ABSOLUTE 2.8 Th/cmm (1.8-8.0); RED BLOOD COUNT 4.25 Mil/cmm (3.80-5.10); RED CELL DISTRIBUTION WIDTH 12.9 % (11.5-20.0)
[2017-06-05 14:59] LABS: PLATELET COUNT 175 Th/cmm (150-400); WHITE BLOOD COUNT 5.6 Th/cmm (4.8-10.8)
[2017-06-05 15:03] LABS: URINE BILIRUBIN SMALL (NEGATIVE); URINE BLOOD NEGATIVE (NEGATIVE); URINE GLUCOSE (UA) NEGATIVE (NEGATIVE); URINE KETONE TRACE mg/dL (NEGATIVE); URINE PROTEIN 30 mg/dL (NEGATIVE)
[2017-06-05 15:05] LABS: INR 0.96 (0.5-1.4)
[2017-06-05 15:07] LABS: URINE COLOR AMBER
[2017-06-05 15:08] LABS: URINE BACTERIA FEW /hpf (NONE SEEN); URINE CALCIUM OXALATE CRYSTALS MODERATE /hpf; URINE EPITHELIAL CELLS FEW /lpf (FEW); URINE RBC 0-1 /hpf (0-5); URINE WBC 0-2 /hpf (0-5)
[2017-06-05 15:09] LABS: ALB/GLOB RATIO 1.1 (1.0-1.8); ALKALINE PHOSPHATASE 160 U/L (34-104); AMYLASE SERUM 33 U/L (29-103); ANION GAP 10.9 (7.0-16.0); BILIRUBIN,TOTAL 0.6 mg/dL (0.3-1.0); BUN - UREA NITROGEN 21 mg/dL (7-25); BUN/CREATININE RATIO 26.3; CALCIUM SERUM 8.9 mg/dL (8.6-10.3); CARBON DIOXIDE 23.9 mEq/L (21.0-31.0); CHLORIDE 104 mEq/L (98-107); CREATININE - SERUM 0.8 mg/dL (0.6-1.2); GLUCOSE 111 mg/dL (70-105); LIPASE 45 U/L (11-82); POTASSIUM SERUM 3.8 mEq/L (3.5-5.1); SGOT 39 U/L (13-39); SGPT/ALT 56 U/L (7-52); SODIUM SERUM 135 mEq/L (136-145)
[2017-06-05] MEDS ORDERED: Sulfamethoxazole/TMP 800/160mg Tab PO ONE (19:38)
[2017-06-05] MEDS ORDERED: Sulfamethoxazole/TMP 800/160mg Tab ONE (19:39)
--- NOTE | 2017-06-06 08:27 | Diagnostic Imaging Report ---
CT abdomen and pelvis without intravenous contrast Indication: Diffuse abdominal pain Comparison: CT abdomen and pelvis on 11/22/2016, Technique: Axial images were obtained from the lung bases to the bilateral proximal femurs without IV contrast. Coronal reconstructions were made. total DLP: 885, CTD I 16.4 FINDINGS: Hypoventilatory atelectatic changes of the lung bases are noted. Assessment of the solid organs is limited due to lack of IV contrast. No evidence of focal hepatic lesions. The patient is status post cholecystectomy. No focal splenic lesions. Pancreatic mild pancreatic gland atrophy is noted with no evidence of focal lesions. No focal adrenal lesions. No hydronephrosis or focal renal lesions. Minimal diverticulosis is noted without evidence of diverticulitis. No evidence of appendicitis. Nonspecific fluid-filled loops of small bowel are noted greatest along the anterior lower abdomen abdomen and pelvis. Trace free fluid is seen within the pelvis. Degenerative changes of the spine and pelvis are noted. Again seen is bilateral pars defects at L5/S1 with 2 mm anterolisthesis. Surgical clip is seen within the pelvis. IMPRESSION: Multiple mild to moderate fluid distended loops of small bowel possibly due to an enteritis. Please correlate clinically. Minimal diverticulosis without evidence of diverticulitis. Trace free fluid in the pelvis. Evidence of prior cholecystectomy. Bilateral pars defects at L5/S1 with associated 2 mm anterolisthesis.
== END 2017-06-05 20:27 | disposition short-term general hospital (02) ==
LOC: ER 13:22
DX: R10.9 Unspecified abdominal pain (principal); J44.1 Chronic obstructive pulmonary disease with (acute) exacerbation; J45.909 Unspecified asthma, uncomplicated; E03.9 Hypothyroidism, unspecified
CPT/HCPCS: 99285; 96374; 96375; 74176; 36415; 85025; 85610; 82270; 81001; 82150; 81025; 83690; 80053; J1885; J2405; J1170; J7030

== ENCOUNTER 2017-08-26 21:09 | Emergency (ER) | payer MEDICARE, MEDICAID ==
--- NOTE | 2017-08-26 21:41 | ED Physician Chart ---
ED Chief Complaint/HPI - Patient Information Date Seen:: 08/26/17 Time Seen:: 21:41 Chief Complaint:: Abdominal pain History of Present Illness:: 52 yo female had abdominal pain [address] abdomen showed enteritis and diverticulosis. She saw a GI specialist who attempted an unsuccessful colonoscopy due to failure to achieve proper sedation before the procedure. The patient had a follow up appointment in Sep 2017. This morning, the patient woke up with abdominal pain, worsened 2 hours ago with nausea but no vomiting. Crampy pain, 10/10, The pain initially was located at epigastric area, later shifted to RUQ. The patient had cholecystectomy 6 years ago. The patient had menopause 21 years ago. She had vaginal spotting today. Allergies:: Allergies Allergy/AdvReac Type Severity Reaction Status Date / Time hydromorphone [From Dilaudid] AdvReac Unknown DIZZINESS Unverified 08/26/17 21: 20 Vitals:: Vital Signs - 8 hr 08/26/17 21:24 Temp 96.7 F HR 80 RR 18 BP 136/89 O2 Sat % 98 ED Review of Systems - Review of Systems GI: Nausea, No vomiting, No diarrhea ED Past Medical History - Past Medical History Past Medical History: Asthma/COPD, Thyroid disorder (Harshimoto's disease, peripheral neuropathy), Other (Diverticulosis, cervical cancer, ) Social History: Non Smoker, Alcohol, No Drug Use Surgical History: Cholecystectomy Family Medical History - Family Member Maternal Grandmother Ethnicity: Non- Hx Family Cancer: Yes (father, brain ca) Mother History Unknown: Yes Ethnicity: Non- Living Status: Still Living Hx Family Cancer: Yes (Mater) Hx Family Coronary Artery Disease: No Hx Family Congestive Heart Failure: No Hx Family Hypertension: No Hx Family Stroke: No Hx Family Diabetes: No Hx Family Seizures: No Hx Family Dementia: No Hx Family AIDS: No Hx Family HIV: No Hx Family COPD: Yes Hx Family Hepatitis: No Hx Family Psychiatric Problems: No Hx Family Tuberculosis: No ED Septic Shock - <6hrs of presentation: Vital Signs: Vital Signs - 8 hr 08/26/17 21:24 Temp 96.7 F HR 80 RR 18 BP 136/89 O2 Sat % 98
[2017-08-26 22:36] LABS: % BASOPHILS 0.6 % (0.0-2.0); % EOSINOPHILS 2.4 % (0.0-5.0); % LYMPHOCYTES 21.8 % (20.0-50.0); % MONOCYTES 4.2 % (2.0-10.0); EOSINOPHILE ABSOLUTE 0.2 Th/cmm (0.1-0.4); HEMATOCRIT 39.9 % (41.0-60); HEMOGLOBIN 13.5 gm/dL (12-16); LYMPHOCYTE ABSOLUTE 1.6 Th/cmm (1.5-3.0); MEAN CELL VOLUME 93.1 fl (81-100); MEAN CORPUSCULAR HEMOGLOBIN 31.5 pg (27.0-31.0); MEAN CORPUSCULAR HGB CONC 33.8 pg (28.0-36.0); MEAN PLATELET VOLUME 8.1 fl; MONOCYTE ABSOLUTE 0.3 Th/cmm (0.3-1.0); NEUTROPHILE ABSOLUTE 5.3 Th/cmm (1.8-8.0); RED BLOOD COUNT 4.28 Mil/cmm (3.80-5.10); RED CELL DISTRIBUTION WIDTH 12.6 % (11.5-20.0)
[2017-08-26 22:39] LABS: PLATELET COUNT 216 Th/cmm (150-400); WHITE BLOOD COUNT 7.4 Th/cmm (4.8-10.8)
[2017-08-26 22:47] LABS: INR 0.96 (0.5-1.4)
[2017-08-26 22:49] LABS: URINE MICROSCOPIC INDICATED? YES; URINE SOURCE RANDOM
[2017-08-26 22:57] LABS: ALB/GLOB RATIO 1.1 (1.0-1.8); ALKALINE PHOSPHATASE 122 U/L (34-104); AMYLASE SERUM 42 U/L (29-103); ANION GAP 10.8 (7.0-16.0); BILIRUBIN,TOTAL 0.6 mg/dL (0.3-1.0); BUN - UREA NITROGEN 14 mg/dL (7-25); CARBON DIOXIDE 22.2 mEq/L (21.0-31.0); CHLORIDE 104 mEq/L (98-107); CREATININE - SERUM 0.8 mg/dL (0.6-1.2); GFR AFRICAN-AMERICAN > 60.0 ml/min (>90); GFR NON AFRICAN-AMERICAN > 60.0 ml/min; GLUCOSE 124 mg/dL (70-105); LIPASE 35 U/L (11-82); SGOT 26 U/L (13-39); SGPT/ALT 28 U/L (7-52); SODIUM SERUM 133 mEq/L (136-145); TOTAL PROTEIN,SERUM 7.6 gm/dL (6.0-8.3)
[2017-08-26 23:05] LABS: URINE BILIRUBIN SMALL (NEGATIVE); URINE BLOOD MODERATE (NEGATIVE); URINE GLUCOSE (UA) NEGATIVE (NEGATIVE); URINE KETONE NEGATIVE (NEGATIVE); URINE LEUKOCYTE ESTERASE SMALL (NEGATIVE); URINE NITRATE NEGATIVE (NEGATIVE); URINE PH 5.5 (4.6 - 8.0); URINE PROTEIN TRACE mg/dL (NEGATIVE); URINE UROBILINOGEN 0.2 E.U./dL (0.2 - 1.0)
[2017-08-26 23:08] LABS: URINE CLARITY HAZY (CLEAR); URINE COLOR YELLOW
[2017-08-26 23:16] LABS: URINE BACTERIA 1+ /hpf (NONE SEEN); URINE EPITHELIAL CELLS FEW /lpf (FEW)
[2017-08-26] MEDS ORDERED: cefTRIAXone 1 GM in Sodium Chloride 0.9% 50 ML IV ONE (23:17)
[2017-08-26] MEDS ORDERED: Sodium Chloride 0.9% 1,000 ML IV ONE (23:18)
[2017-08-26] MEDS ORDERED: cefTRIAXone 1 GM in Sodium Chloride 0.9% 50 ML IM ONE (23:30)
--- NOTE | 2017-08-27 09:46 | Diagnostic Imaging Report ---
Exam: CT examination abdomen pelvis. HISTORY: Abdominal pain Total DLP equals 873 CTDI equals 17.4 Findings: Multiple contiguous thin section of the abdomen pelvis obtained from lower thorax to the pubic symphysis without the administration of the oral or intravenous contrast material. The study correlated with the prior exam of 11/22/2016. The study demonstrates normal aeration of lung parenchyma the bases. The liver and spleen intact. The stomach distended with content. The pancreas is normal. There is evidence of previous cholecystectomy. Adrenal glands are intact. There is no evidence of obstructive uropathy or nephrolithiasis. No free fluid is noted. There is no evidence of diverticular disease of diverticulitis. No secondary signs of appendicitis appreciated. Bony structures demonstrate no evidence for lytic or blastic changes. IMPRESSION: Essentially unremarkable examination of the abdomen pelvis. Essentially unchanged compared to prior exam of 11/17/2016
== END 2017-08-27 01:15 | disposition home or self-care (01) ==
LOC: ER 21:09
DX: R10.9 Unspecified abdominal pain (principal); J45.909 Unspecified asthma, uncomplicated; J44.9 Chronic obstructive pulmonary disease, unspecified
CPT/HCPCS: 99285; 96372 ×2; 74176; 36415; 85025; 85610; 87086; 81001; 82150; 83690; 80053; J0696; J1885; J2001; J7030